=== PATIENT | female | born 1975 | race Caucasian/White ===

== ENCOUNTER → 2018-03-11 | Outpatient (CLI) | payer SELFPAY | LOC: MC.RAD 09:30 | DX: N63.11 Unspecified lump in the right breast, upper outer quadrant (principal) ==

== ENCOUNTER → 2018-03-14 | Outpatient (CLI) | payer SELFPAY | LOC: MC.RAD 09:56 | DX: N63.11 Unspecified lump in the right breast, upper outer quadrant (principal) ==

== ENCOUNTER → 2021-09-26 | Outpatient (CLI) | payer BC | LOC: COL.RAD 09:45 | DX: C50.411 Malignant neoplasm of upper-outer quadrant of right female breast (principal) | CPT/HCPCS: A9503 ==

== ENCOUNTER → 2021-10-08 | Outpatient (CLI) | payer BC | LOC: COL.RAD 13:39 | DX: R93.89 Abnormal findings on diagnostic imaging of other specified body structures (principal) ==

== ENCOUNTER → 2021-11-25 | Outpatient (CLI) | payer BC | LOC: COL.RAD 11:32 | DX: N83.202 Unspecified ovarian cyst, left side (principal) ==